=== PATIENT | male | born 1995 | race African-American/Black ===

== ENCOUNTER 2019-08-13 17:39 | Emergency (ER) | payer BC ==
[~2019-08-13] VITALS: Ht 185.4 cm; Wt 104.8 kg
[2019-08-13 18:10] VITALS: Ht 185.4 cm; Wt 104.8 kg
[2019-08-13 22:58] VITALS: BP 121/64
== END 2019-08-13 22:58 | disposition home or self-care (01) ==
LOC: ED 17:39
DX: J11.1 Influenza due to unidentified influenza virus with other respiratory manifestations (principal); S39.012A Strain of muscle, fascia and tendon of lower back, initial encounter; X50.0XXA Overexertion from strenuous movement or load, initial encounter; Y93.89 Activity, other specified; Y92.89 Other specified places as the place of occurrence of the external cause; Y99.8 Other external cause status
CPT/HCPCS: 87804; J1885